=== PATIENT | male | born 1980 | race Caucasian/White ===

== ENCOUNTER 2020-01-30 13:39 | Outpatient (NON) | payer SELFPAY ==
[2020-02-02 01:47] LABS: SARS-CoV-2 RNA PCR Negative
== END 2020-01-30 13:40 ==
DX: J02.9 Acute pharyngitis, unspecified (principal); Z20.828 Contact with and (suspected) exposure to other viral communicable diseases
CPT/HCPCS: 87635; C9803; U0003

== ENCOUNTER 2023-10-17 03:59 | Day surgery (SDC) | payer BC, SELFPAY ==
[2023-10-03 12:37] VITALS: BMI 22.4
[2023-10-17 11:54] VITALS: BP 125/106; PULSE 90; RESP 19; TEMP 36.2; O2SAT 99
[2023-10-17] MEDS: LACTATED RINGERS 1,000 ML 150 ML IV CONT (12:04)
--- NOTE | 2023-10-17 12:12 | WPDANESEPPF ---
Anes - Initial Pre Proc Eval Procedure: Operation Date: 10/17/23 13:00 Proposed Procedures p Colonoscopy - Darrick Vivar MD Date/Time: 10/17/23 12:12 Surgeon: Darrick Vivar MD Pre Op Diagnosis: Family Hx. of colon polyps Patient Data Age: 43 Gender: M Height: 1.83 m Weight: 73.4 kg Last Vital Signs Temp 97.2 F L 10/17/23 11:54 Pulse 90 10/17/23 11:54 Resp 19 10/17/23 11:54 BP 125/106 H 10/17/23 11:54 Pulse Ox 99 10/17/23 11:54 O2 Del Method Room Air 10/17/23 11:54 Allergies Allergy/AdvReac Type Severity Reaction Status Date / Time No Known Allergies Allergy Mild Verified 10/17/23 11:53 Home Medications Medication Instructions Recorded Confirmed Type metronidazole 0.75 % lotion 1 applic topical DAILY 07/07/23 10/03/23 History duloxetine 30 mg capsule,delayed 30 mg PO DAILY #30 caps 08/18/23 10/03/23 Rx release sildenafil 50 mg tablet (Viagra) 50 mg PO DAILY PRN sexual activity 09/27/23 10/03/23 Rx #30 tabs lisdexamfetamine 30 mg capsule 30 mg PO QAM #30 caps 10/03/23 Rx (Vyvanse) Patient hx anesthesia problems: none Family hx anesthesia problems: none Results Review: All pre-operative results and documents have been reviewed as part of the pre-operative evaluation. [facility] Past Medical History Medical History Allergies Attention deficit disorder (ADD) in adult GERD (gastroesophageal reflux disease) Surgical History Surgical History Hx of appendectomy Family History Family History Mother Breast cancer Thyroid disorder Grandparent Pancreatic cancer Diabetes mellitus Heart problem Grandparent Heart problem Social History Social History Years smoked: 2 Smoking status: Never smoker Tobacco type: cigarettes Smokeless tobacco user: chewing tobacco Alcohol intake: current Drinks per week: 1 Alcohol use details: occasionally, Maybe once or twice a month Substance use: current Substance use type: marijuana Other substance usage details: weekend Do You Feel Safe in your Home?: Yes Lack of Transportation: No Lack of Food: Never True Current Housing: I Have Housing Concerned About Future Housing: No Difficulty Paying Gas/Electric Bills: No Difficulty Paying for Meds: No Currently Unemployed: No Education: Bachelor's Degree Difficulty w/ Childcare or Family Care: No Living arrangements: alone Occupation/Education: occupation 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 Gender identity (if verbalized by the patient): Male Sexual Orientation (if Verbalized by the Patient): Straight or Heterosexual Spiritual care concerns: No Agree to blood products: Yes Anes - Eval Final PreProcedure Day of Procedure 10/17/23 12:12 Patient weight: normal Heart: regular rate and rhythm Lungs: clear to auscultation Airway: Mallampati scale class II Neurological: alert and oriented Last oral intake: >/= 8 hours ASA classification: II Emergent: no Anesthetic plan: proceed Anesthesia type and monitoring: general GIVS and standard monitoring Results Review: All pre-operative results and documents have been reviewed as part of the pre-operative evaluation. Informed Consent: The patient's anesthetic plan and its attendant risks and benefits were discussed with the patient/family/POA. Questions were solicited and answers provided to the satisfaction of the patient/family/POA.
--- NOTE | 2023-10-17 12:30 | PM.HPGS ---
History of Present Illness History of Present Illness Consent: Risks, benefits, and alternatives have been discussed and questions answered. Patient agrees to proceed with procedure. Chief complaint: Family Hx. of colon polyps Narrative: Amado Briggs is a 43 year old male here for first screening colonoscopy Review of Systems Review of Systems: All systems reviewed & are unremarkable except as noted in HPI and below PMFSH Past Medical History Medical History Allergies Attention deficit disorder (ADD) in adult GERD (gastroesophageal reflux disease) Surgical History Surgical History Hx of appendectomy Family History Family History Mother Breast cancer Thyroid disorder Grandparent Pancreatic cancer Diabetes mellitus Heart problem Grandparent Heart problem Social History Social History Years smoked: 2 Smoking status: Never smoker Tobacco type: cigarettes Smokeless tobacco user: chewing tobacco Alcohol intake: current Drinks per week: 1 Alcohol use details: occasionally, Maybe once or twice a month Substance use: current Substance use type: marijuana Other substance usage details: weekend Do You Feel Safe in your Home?: Yes Lack of Transportation: No Lack of Food: Never True Current Housing: I Have Housing Concerned About Future Housing: No Difficulty Paying Gas/Electric Bills: No Difficulty Paying for Meds: No Currently Unemployed: No Education: Bachelor's Degree Difficulty w/ Childcare or Family Care: No Living arrangements: alone Occupation/Education: occupation 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 Gender identity (if verbalized by the patient): Male Sexual Orientation (if Verbalized by the Patient): Straight or Heterosexual Spiritual care concerns: No Agree to blood products: Yes Meds Home Medications and Allergies Home Medications Medication Instructions Recorded Confirmed Type metronidazole 0.75 % lotion 1 applic topical DAILY 07/07/23 10/03/23 History duloxetine 30 mg capsule,delayed 30 mg PO DAILY #30 caps 08/18/23 10/03/23 Rx release sildenafil 50 mg tablet (Viagra) 50 mg PO DAILY PRN sexual activity 07/23/24 07/29/24 Rx #30 tabs lisdexamfetamine 30 mg capsule 30 mg PO QAM #30 caps 10/03/23 Rx (Vyvanse) Allergies Allergy/AdvReac Type Severity Reaction Status Date / Time No Known Allergies Allergy Mild Verified 10/17/23 11:53 Vital Signs Vital Signs - 24 hr 10/17/23 11:54 Temperature 97.2 F L Pulse Rate 90 Respiratory Rate 19 Blood Pressure 125/106 H Pulse Oximetry 99 Oxygen Delivery Room Air Exam Const: General: comfortable and no acute distress HENMT: Face/Nose/Sinus: Normal nares present Eyes: General: appearance normal, both eyes and all related structures Neck: Neck: no JVD Resp: Auscultation: clear to auscultation bilaterally Cardio: Rate: regular rate Rhythm: regular rhythm GI: Inspection: non-distended GI Palp: Yes Soft to palpation Skin: General skin exam: normal color Neuro: General: gait normal Speech: normal speech Extrem: General: normal to inspection Psych: Mental Status: mental status grossly normal Assessment and Plan Assessment and plan (1) Colon cancer screening: Code(s): Z12.11 - Encounter for screening for malignant neoplasm of colon Status: Acute Assessment and Plan: colonoscopy
[2023-10-17 12:45] VITALS: BP 118/85; PULSE 82; RESP 26; O2SAT 100
[2023-10-17 12:55] VITALS: BP 115/83; PULSE 82; RESP 25; O2SAT 100
[2023-10-17 13:05] VITALS: BP 132/86; PULSE 80; RESP 18; O2SAT 100
== END 2023-10-17 13:37 | disposition home or self-care (01) ==
PROVIDERS: PCP Internal Medicine; Visit Provider Internal Medicine Gastroenterology
PROC: 0DJD8ZZ Inspection of Lower Intestinal Tract, Via Natural or Artificial Opening Endoscopic (ICD-10-PCS; CPT 45378; principal; 2023-10-17 13:00)
DX: Z12.11 Encounter for screening for malignant neoplasm of colon (principal); K64.8 Other hemorrhoids; K21.9 Gastro-esophageal reflux disease without esophagitis; F98.8 Other specified behavioral and emotional disorders with onset usually occurring in childhood and adolescence; F17.220 Nicotine dependence, chewing tobacco, uncomplicated; Z98.890 Other specified postprocedural states; Z80.3 Family history of malignant neoplasm of breast; Z80.0 Family history of malignant neoplasm of digestive organs; Z82.49 Family history of ischemic heart disease and other diseases of the circulatory system
CPT/HCPCS: 45378; J2704; J7120